=== PATIENT | female | born 1975 | race Caucasian/White ===

== ENCOUNTER 2019-01-26 19:30 | Emergency (ER) | payer MEDICARE ==
--- NOTE | 2019-01-26 20:03 | Emergency Department Record ---
History of Present Illness - General Chief Complaint: Altered Mental Status Stated Complaint: CONFUSION,NOT FEELING WELL Time Seen by Provider: 01/26/19 19:55 Source: Patient, Family Mode of Arrival: Wheelchair Limitations: No limitations - History of Present Illness Initial Comments: 43 yo female presents to ED for evaluation of confusion symptoms for the past 3 days. Patient's SO provides history, reports that he and the patient traveled to [place] last weekend, patient was bitten by numerous mosquitos. Since returning home, the patient has become more and more confused, does not know what year it is or what hospital she is at currently. 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 SO denies any change in medications. MD Complaint: Altered mental status, Confusion Onset/Timin -: Days(s) Severity: Moderate Associated Symptoms: Denies other symptoms - Jaison Coma Scale Eye Response: (4) Open spontaneously Motor Response: (6) Obeys commands Verbal Response: (5) Oriented Jaison Total: 15 - Related Data Home Medications Medication Instructions Recorded Confirmed Last Taken Klonopin,Lyrica,Zoloft 01/26/19 Unknown Tramadol,Seroquil,Omeprazole 01/26/19 Unknown Allergies Allergy/AdvReac Type Severity Reaction Status Date / Time No Known Drug Allergies Allergy Verified 01/26/19 19:50 Review of Systems ROS unobtainable: Due to mental status Neurological: Reports: Confusion Physical Exam - General General Appearance: Alert, Oriented x3, Cooperative, Moderate distress Limitations: No limitations - Head Head exam: Atraumatic, Normocephalic, Normal inspection Head exam detail: negative: Abrasion, Contusion, Martinez's sign, General tenderness, Hematoma, Laceration - Eye Eye exam: Normal appearance, PERRL. negative: Conjunctival injection, Periorbital swelling, Periorbital tenderness, Scleral icterus - ENT Ear exam: negative: Auricular hematoma, Auricular trauma Nasal Exam: negative: Active bleeding, Discharge, Dried blood, Foreign body Mouth exam: negative: Drooling, Laceration, Muffled voice, Tongue elevation - Neck Neck exam: Normal inspection. negative: Meningismus, Tenderness - Respiratory Respiratory exam: Normal lung sounds bilaterally. negative: Rales, Respiratory distress, Rhonchi, Stridor - Cardiovascular Cardiovascular Exam: Regular rate, Normal rhythm, Normal heart sounds - GI/Abdominal GI/Abdominal exam: Soft. negative: Rebound, Rigid, Tenderness - Rectal Rectal exam: Deferred - exam: Deferred - Extremities Extremities exam: Normal inspection. negative: Pedal edema, Tenderness - Back Back exam: Denies: CVA tenderness (R), CVA tenderness (L) - Neurological Neurological exam: Alert, CN II-XII intact, Other (AO x 1 only, no focal deficits on examination other than memory.) - Psychiatric Psychiatric exam: Normal affect, Normal mood - Skin Skin exam: Normal color. negative: Abrasion Type of lesion: negative: abrasion Course - Reevaluation(s) Reevaluation #1: 01/26/19 21:02 CT Brain was reviewed, preliminary result appears negative. Laboratory studies were reviewed and are grossly unremarkable for an acute process except for: AST>1963 ALT>2070 Ammonia 31 TSH 0.61 MDM: Given the patient's laboratory results and normal ammonia level, will proceed with performing LP to exclude viral meningitis as a cause of the patient's symptoms. Reevaluation #2: 01/26/19 21:42 Attempted LP without success to exclude viral meningitis. Will initiate treatment with acyclovir (oral, no IV available). [id number] contacted for transfer for further evaluation. Reevaluation #3: 01/26/19 22:23 Case was discussed with Dr. Gomez and Dr. Holguin (GI), feels the patient should be transferred to a center that can handle liver transplantation if needed. Patient was asked about transfer to [facility] vs. [facility], cannot decide. contacted, will return to help facilitate transfer. Reevaluation #4: 01/26/19 22:40 SO has returned, would like us to attempt to transfer the patient to the [facility]. Will call to initiate transfer process. Reevaluation #5: 01/26/19 22:47 Patient's SO has now changed his mind, would like to take the patient from [facility] to [facility] ED for evaluation and testing. I explained that further testing would likely not be performed in the ED and [facility] had denied transfer for admission due to elevated LFTs. Patient and her verbalize understanding of the admission/transfer process, and are still choosing to go directly to [facility] ED for evaluation. Patient confirms that her at the bedside is able to make decision regarding her care. Following discussion with the patient and her regarding transfer to a facility able to accept patient's at risk for liver failure and possible transplant ([facility]), patient and her report that they want to leave AMA at this time and go directly to [facility] ED. Risks of , permanent impairment, or worsening of the patient's current condition were discussed as well as the benefit of transferring to a facility able to admit the patient for further evaluation of the patient's confusion symptoms. Patient's verbalizes understanding of all risks and benefits, desires to leave AMA with th e patient despite these risks. Patient is in agreement with her as well. Based on my examination, the patient is alert but confused, however is in agreement with her to leave [facility] and go directly to [facility] for evaluation. Patient was encouraged to return to the ED immediately if they change their mind about treatment and transfer. Procedures - Lumbar Puncture Consent Obtained: Verbal consent, Written consent Time Out Performed: Yes Indication for Procedure: Change in mental status Patient Position: Sitting upright/leaning forward Skin Prep: Povidone-Iodine 1% Local Anesthetic Used: Lidocaine 1% Spinal Needle Gauge: 20G Spinal Needle Length: 3.5in Interspace Used: L4-L5 Complications: Unable to obtain CSF Patient Tolerated Procedure: Fair Medical Decision Making - Lab Data Result diagrams: 01/26/19 20:07 01/26/19 20:07 Disposition Disposition: Other (AMA) Clinical Impression: Hepatitis Altered mental status Qualifiers: Altered mental status type: unspecified Qualified Code(s): R41.82 - Altered mental status, unspecified Disposition: Against Medical Advice Condition: (3) Guarded Instructions: Acute Delirium (ED), Altered Mental Status (ED) Additional Instructions: Return to ED if your symptoms worsen or if you have any concerns. Forms: Patient Portal Access Time of Disposition: 22:53 Quality - Quality Measures Quality Measures: N/A - Blood Pressure Screening Does Patient Have Any of the Following: No Blood Pressure Classification: Pre-Hypertensive BP Reading Systolic Measurement: 151 Diastolic Measurement: 87 Screening for High Blood Pressure: < Pre-Hypertensive BP, F/U Documented > [G8950] Pre-Hypertensive Follow-up Interventions: Referral to alternative/primary care provider.
[2019-01-26 20:15] LABS: ABSOLUTE NEUTROPHIL COUNT 8.85; HEMATOCRIT 37.2 % (35.0-47.0); HEMOGLOBIN 12.3 gm/dl (11.6-16.0); MEAN CELL VOLUME 94.7 fl (81-97); MEAN CORPUSCULAR HEMOGLOBIN 31.3 pg (27-33); MEAN CORPUSCULAR HGB CONC 33.1 g/dl (32-36); MEAN PLATELET VOLUME 11.4 fl (7.4-10.4); PLATELET COUNT 247 K/uL (130-400); RED BLOOD COUNT 3.93 M/uL (3.80-5.40); RED CELL DISTRIBUTION WIDTH 13.8 % (11.5-14.5); WHITE BLOOD COUNT W/O DIFF 11.1 K/uL (4.2-12.2)
[2019-01-26 20:30] LABS: BLOOD UREA NITROGEN 9 mg/dL (6-20); CREATININE 0.5 mg/dL (0.5-0.9); EST GLOMERULAR FILTRATION RATE > 60 mL/min; TOTAL PROTEIN 6.8 g/dL (6.6-8.7)
[2019-01-26 20:32] LABS: GLUCOSE,RANDOM 144 mg/dL (74-109)
[2019-01-26 20:35] LABS: ACETAMINOPHEN < 5.0 ug/mL (10.0-30.0); ALB/GLOB RATIO 1.2 (1.1-1.8); ALBUMIN 3.7 g/dL (4.0-5.0); ALKALINE PHOSPHATASE 146 U/L (35-104)
[2019-01-26 20:38] LABS: SALICYLATE < 0.3 mg/dL (2.8-20)
[2019-01-26 20:46] LABS: THYROID STIMULATING HORMONE 0.61 uIU/mL (0.270-4.20)
[2019-01-26 21:02] LABS: ALT/SGPT 2274 U/L (<33); AST/SGOT 2002 U/L (10.0-35.0)
[2019-01-26] MEDS ORDERED: MIDAZOLAM HCL 2MG/2ML VIAL IV ONE (21:04)
[2019-01-26 22:01] LABS: INR 1.3; PROTHROMBIN TIME (PATIENT) 13.4 SECONDS (9.5-12.1)
[2019-01-28 08:23] LABS: HEP A AB IGM Nonreactive (Nonreactive); HEPATITIS B CORE ANTIBODY,IGM Nonreactive (Nonreactive); HEPATITIS B SURFACE ANTIGEN Nonreactive (Nonreactive); HEPATITIS C VIRUS ANTIBODY Nonreactive (Nonreactive)
--- NOTE | 2019-01-29 13:49 | CT SCAN REPORT ---
EXAM: EMERGENCY HEAD CT HISTORY: CONFUSION. TECHNIQUE: Axial CT scan of the head was performed without IV contrast. Comparison: None. FINDINGS: No definite acute intracranial hemorrhage identified. No focal mass effect or midline shift evident. No definite acute infarct or intracranial mass lesion seen. Some membrane thickening inferiorly in the right maxillary antrum. No depressed calvarial fracture evident. IMPRESSION: 1. NO ACUTE INTRACRANIAL HEMORRHAGE OR FOCAL MASS EFFECT EVIDENT. 2. MEMBRANE THICKENING IN THE FLOOR OF THE RIGHT MAXILLARY ANTRUM. JOB NUMBER: [id number] MTDD
== END 2019-01-26 23:10 | disposition left against medical advice (07) ==
LOC: ER 19:30
DX: K75.9 Inflammatory liver disease, unspecified (principal); R41.82 Altered mental status, unspecified; I10 Essential (primary) hypertension; I25.2 Old myocardial infarction; F17.210 Nicotine dependence, cigarettes, uncomplicated
CPT/HCPCS: 62270 ×2; 99284; 96374; 99285; 82140; 85610; 80053; 84443; 85027; 70450; G0480 ×3; 80320; 80329